=== PATIENT | male | born 2000 | race Caucasian/White ===

== ENCOUNTER 2021-05-24 11:26 | Emergency (ER) | payer SELFPAY ==
[2021-05-24 11:32] VITALS: BP 126/60; PULSE 69; RESP 16; TEMP 37.3; O2SAT 97
--- NOTE | 2021-05-24 11:38 | W.ED.GENAD ---
Discharge Plan Disposition Patient Disposition: HOME Condition: Improving Discharge Details Clinical Impression: Periorbital cellulitis of left eye ED Provider: Jason Gan Home Meds and New Rx's Prescriptions: New amoxicillin-pot clavulanate 875-125 mg tablet 1 tab PO BID 10 Days Qty: 20 RF: 0 Continued loratadine [Claritin] 10 mg Tablet 10 mg PO PRNRF: 0 Discharge Instructions Instructions: Cellulitis (ED) Additional Instructions: Apply warm compress to area 20 minutes at a time to speed healing. Take antibiotics as prescribed. Return to the ER for any acute concerns. Medical Decision Making 21-year-old male with left periorbital swelling, likely a developing cellulitis. No evidence of retrobulbar infection. Will treat with Augmentin. He is stable for discharge to home. HPI General Mode of arrival: ambulatory. Date/Time Provider Initiated Documentation: 05/24/21 11:28. Limitations to Documentation: no limitations. Information obtained by: patient. History of Present Illness 21 year old M presents to the emergency department with the chief complaint of L eye periorbital swelling, described as moderate, Quality is described as dull, and is localized to the eyes and left. Patient reports no radiation. Patient started experiencing this hour(s) and it has been constant. No relieving factors improve symptom(s), No exacerbating factors reported . Patient notes denies fever/chills, headaches and nausea/vomiting. Patient did receive the following treatments prior to arrival, none Related Data Home Medications Medication Instructions Recorded Confirmed amoxicillin-pot clavulanate 1 tab PO BID 10 Days #20 tab 05/24/21 loratadine [Claritin] 10 mg PO PRN 05/24/21 Previous Rx's Medication Instructions Recorded amoxicillin-pot clavulanate 1 tab PO BID 10 Days #20 tab 05/24/21 Allergies Allergy/AdvReac Type Severity Reaction Status Date / Time seasonal Allergy Uncoded 05/24/21 11:37 General Stated Complaint: EyeProblem HUBER: 4 Review of Systems Narrative: no other illness, no trauma [facility] Social History Smoking/Tobacco Use Status: Current every day Tobacco Type: cigarettes Smoking risk assessment performed?: Yes Alcohol Intake: current Alcohol Intake frequency: a few times a month Drug use: Daily Substance use type: marijuana Exam Narrative Exam Narrative: GEN: awake, alert, oriented 3. Pleasant, well groomed, interactive. HEAD: Normocephalic, atraumatic ENT: Mucous membranes moist, oropharynx unremarkable, External ear exam unremarkable EYES: PERRL, EOMI, no conjunctival injection or crusting of the lids. Left superior periorbital swelling with faint erythema Neuro: Grossly normal neurologic exam, conversant, interactive. Psych: Speech fluent, thoughts congruent, affect normal Course Vital Signs Vital signs: Vital Signs Temperature 37.3 C 05/24/21 11:32 Pulse 69 05/24/21 11:32 Respiratory Rate 16 05/24/21 11:32 Blood Pressure 126/60 05/24/21 11:32 Pulse Oximetry 97 05/24/21 11:32 Temperature 37.3 C 05/24/21 11:32 Temperature Source Skin 05/24/21 11:32 Pulse 69 05/24/21 11:32 Respiratory Rate 16 05/24/21 11:32 Respiratory Effort Non-Labored 05/24/21 11:32 Blood Pressure 126/60 05/24/21 11:32 Blood Pressure Position Sitting 05/24/21 11:32 Pulse Oximetry 97 05/24/21 11:32 Oxygen Delivery Method Room Air 05/24/21 11:32 Oxygen Flow Rate 0 05/24/21 11:32 Pain Level 5 05/24/21 11:32
[2021-05-24 12:00] VITALS: BP 126/60; PULSE 69; RESP 16; TEMP 37.3; O2SAT 97
--- OUTSIDE RECORDS SUMMARY | 2021-05-24 12:13 | XMS_ITS | Continuity of Care Document ---
:2000 Author Organization [facility] Address [address] [place] [address] Care Team Providers Name Role Phone Savanah Primary Care Physician Savanah Attending Physician Allergies, Adverse Reactions, Alerts Allergen Type Severity Reaction Last Updated Verified Status No Known Drug Allergies Allergy February 08, 2018 Y Active Medications Active Medications Medication Dose Units Route Sig Qty Start Date Status Loratadine 10 MG ORAL DAILY PRN For May 05 Ac tive allergies 2013 Mometasone Furoate 1 SPR NASAL DAILY PRN For er 9, Active [Nasonex] allergies 2013 Mupirocin 1 APPLIC TOPICALLY THREE TIMES A DAY February 08, 2 018 Active PRN For suspicious pimple formation Problem List Inactive/Resolved Problems Medical Problem Onset Date Status Suprapubic abscess Inactive Procedures Procedure Date Status MRSA Screen March 08, 2018 active Gram Stain February 08, 2018 completed Abscess Culture February 08, 2018 completed Group A Streptococcus Screen (EDA) April 15, 2017 compl eted Relevant Diagnostic Tests and/or Laboratory Data Microbiology Results Procedure Source Result Collection Result Date/Yash e Date/Time Group A Streptococcus Throat No results entered April 15 17 Screen (EDA) 12:17pm Abscess Culture Groin Staphylococcus February 08, 2018 February 11, 2018 Aureus-Mrsa 4:50pm 8:27am Gram Stain Groin No results entered February 08, 2018 4:50pm Advance Directives Advance Directive Response Recorded Date/Time Do we have a copy on file here at [facility]? No J 2017 4:32pm Does patient have an Advanced Directive? No February 08, 2011 5:25pm Pt has a Living Will? No February 08, 2011 5:25 pm Pt has a Power of Superintendent Stations? No February 08 5:25pm Chief Complaint and Reason for Visit Encounter Admit Date Chief Complaint Reason for Visit Departed Clinical March 08, 2018 12:19pm Lab Hospital Discharge Instructions No known hospital discharge instructions. Hospital Discharge Medications Medication Dose Units Route Sig Qty Days Order Date Status In structions Loratadine 10 MG ORAL DAILY PRN April Active For 2013 allergies Mometasone 1 SPR NASAL DAILY PRN April Active Furoate For 2013 allergies Mupirocin 1 APPLIC TOPICALLY THREE TIMES February 08 ve A DAY PRN 2017 For suspicious pimple formation Encounters Encounter Facility Location Admit/Visit Discharge/Departure Atte nding Date Date Provider Departed [facility] Laboratory March 08, 2018 March 08, 2018 12:20p m [facility] 12:19pm Richie hoover Departed [facility] Emergency February 08, 2018 February 08, 2018 5:45pm [facility] Department 3:52pm Departed [facility] 15, [facility] 3:06pm Heaven OneillMontebello Functional Status No known functional status. 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s No known immunizations. Payers Payer Name Policy Type Covered Republican Covered Relationship Subscriber Subscriber Republican Id Id MEDICAID OF Medicaid ERUM [id number] Self/Same as ERUM [id number] 20 [place] [employer] Patient FORTINMOODY SELF PAY Personal [place] MEDICAID Medicaid ERUM [id number] Self/Same as ERUM [id number] 20 (DO NOT FORTINMOODY Patient FORTINMOODY USE) Plan of Care No Known Plan of Care Information Social History Query Response Start Date Stop Date Smoking Status Never smoker Vital Signs Vital Reading Result Reference Range Collection Date/ Time Height n/a Weight 68.492 kg February 08, 2018 3: 54pm Temperature 98.8 F 97.6 F-99.6 F February 08, 2018 3: 54pm Pulse 61 BPM 56-106 February 08, 2018 3: 54pm Respiration 16 RPM 16-24 February 08, 2018 3: 54pm Pulse Oximetry 98 % 95-100 February 08, 2018 3: 54pm Blood Pressure Systolic 115 101-135 February 08, 2018 3:54pm Blood Pressure Diastolic 97 59-85 January 3:54pm Body Mass Index n/a
--- OUTSIDE RECORDS SUMMARY | 2021-05-24 12:13 | XMS_ITS | Continuity of Care Document ---
:2001 Author Organization [facility] Address [address] [place] [address] Care Team Providers Name Role Phone Savanah Primary Care Physician Humaira Attending Physician Allergies, Adverse Reactions, Alerts Allergen Type Severity Reaction Last Updated Verified Status No Known Drug Allergies Allergy none October 02, 2019 Y Active Medications No known medications. Problem List Inactive/Resolved Problems Medical Problem Onset Date Status Suprapubic abscess Inactive Acute tonsillitis April 17, 2017 Resolved Open wound of forearm with tendon involvement May 01 014 Resolved Bite of nonvenomous arthropod July 15, 2012 Resolved Acute pharyngitis April 15, 2017 Resolved Allergic rhinitis September 27, 2012 Resolved Allergic rhinitis September 27, 2012 Resolved Procedures Procedure Date Status Ribs 3 vw Min Bilat w/o PA CXR October 02, 2019 completed Relevant Diagnostic Tests and/or Laboratory Data No known relevant diagnostic tests, laboratory data, and/or discharge summary. Chief Complaint and Reason for Visit Encounter Admit Date Chief Complaint Reason for Visit Departed Clinical October 02, 2019 11:07am Xray Hospital Discharge Instructions No known hospital discharge instructions. Encounters Encounter Facility Location Admit/Visit Discharge/Departure Atte nding Date Date Provider Departed [facility] October 02October 02, 2019 Clay adams [facility] 2019 11:07am 11:08am [facility] Departed [facility] October 02October 02, 2019 Physician Haley[facility] 2019 9:56am 10:25am Jose angelo Office Visit Departed [facility] August 25August 25, 2019 Physician Humaira[facility] [place] 2018 11:35am 12:13pm Jose nagelo Office Visit Departed [facility] August 12August 12, 2019 Physician Humaira[facility] [place] 2018 1:59pm 2:52pm Jose angelo Office Visit Departed [facility] January 22, 2019 January 22, 2019 Feliciano kilpatrick, Physician[facility] 12:00am Tiffanie angelo Office Visit Functional Status No known functional status. 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s 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 Name Date Given Type DTP vaccine (H) 2001 Historical DTP vaccine (H) 2001 Historical DTP vaccine (H) 2001 Historical DTP vaccine (H) August 12, 2003 Historical DTP vaccine (H) May 04, 2006 Historical Hepatitis A Pediatric/Adolescent August 25, 2019 Adminis tered Hepatitis B UNSP (H) 2001 Historical Hepatitis B UNSP (H) June 27, 2002 Historical Hepatitis B UNSP (H) August 12, 2003 Historical HIB, Unspecified (H) 2001 Historical HIB, Unspecified (H) 2001 Historical HIB, Unspecified (H) 2001 Historical HIB, Unspecified (H) June 27, 2002 Historical HPV 9 (Gardasil) April 10, 2017 Historical HPV 9 (Gardasil) August 25, 2019 Administered Influenza IIV4 with Preservative July 14, 2016 Histori satish Meningococcal Conjugate MCV4 (Menactra) July 09, 2015 Historical Meningococcal Conjugate MCV4 (Menactra) August 25, 2019 Administered Measles,Mumps,Rubella Vaccine June 27, 2002 Historical Measles,Mumps,Rubella Vaccine May 04, 2006 Historical Pneumococcal Unspecified (H) 2001 Historical Pneumococcal Unspecified (H) 2001 Historical Pneumococcal Unspecified (H) 2001 Historical Polio unspecified (H) 2001 Historical Polio unspecified (H) 2001 Historical Polio unspecified (H) August 12, 2003 Historical Polio unspecified (H) May 04, 2006 Historical Tdap July 03, 2014 Historical Varicella Virus Vaccine (Varivax) July 03, 2014 Histor ical Varicella Virus Vaccine (Varivax) July 09, 2015 Histor ical Payers Payer Name Policy Type Covered Libertarian Covered Relationship Subscriber Subscriber Libertarian Id Id MEDICAID OF Medicaid Carlito [id number] Self/Same as Carlito [id number] 20 [place] Patient [place] SELF PAY Personal [place] MEDICA[place] Medicaid CARLITO [id number] Self/Same as CARLITO [id number] 20 (DO NOT FORTINMOODY Patient FORTINMOODY USE) Plan of Care No Known Plan of Care Information Social History Query Response Date Recorded Comment Alcohol Use No February 08, 2018 7:30pm Smoking Status Never smoker October 02, 2019 10:12am Substance/Street Drug Use No February 08, 2018 7:30pm Query Response Start Date Stop Date Smoking Status Never smoker Vital Signs Vital Reading Result Reference Range Collection Date/ Time Height 5 ft 7 in August 12 9 2:09pm Weight 73.482 kg October 02, 2019 10:10am Temperature 96.6 F 97.6 F-99.6 F October 02, 2019 10:10am Pulse 72 BPM 56-106 August 12 9 2:09pm Respiration 16 RPM 16-24 August 12 9 2:09pm Pulse Oximetry n/a Blood Pressure Systolic 106 101-135 August 12, 2019 2:09pm Blood Pressure Diastolic 72 59-85 [facility] 2018 2:09pm Body Mass Index 25.0 August 12 9 2:09pm
--- OUTSIDE RECORDS SUMMARY | 2021-05-24 12:13 | XMS_ITS | Continuity of Care Document ---
:[address] [facility] Address [address] [place] [address] Care Team Providers Name Role Phone Savanah Primary Care Physician Allergies, Adverse Reactions, Alerts Allergen Type Severity Reaction Last Updated Verified Status No Known Drug Allergies Allergy none October 02, 2019 Y Active Medications Active Medications Medication Dose Units Route Sig Qty Days Start Date St [facility] Omeprazole 20 MG ORAL DAILY 14 14 March 13, 2020 Active Discontinued Medications Medication Dose Units Route Sig Qty Days Start Discontinued Status Date Date 0.5 ML INTRAMUSCU ONCE 0.5 JulyAugust 25 , Discontinu LAR 2018 ed 0.5 ML INTRAMUSCU ONCE 0.5 JulyAugust 25 , Discontinu LAR 2018 ed human papillomav vac,9-james(PF) 0.5 mL intramuscular syringe 0.5 ML INTRAMUSCU ONCE 0.5 JulyAugust 25, Discontinu LAR 2018 ed Mupirocin 1 APPLIC TOPICALLY THREE February 08, August 11, Discontinu TIMES A 2017 2018 ed DAY PRN For suspicio us pimple formatio n Problem List Active Problems Medical Problem Onset Date Status Dyspepsia Active Inactive/Resolved Problems Medical Problem Onset Date Status [...] diagnostic tests, laboratory data, and/or discharge summary. Hospital Discharge Instructions Additional Discharge Instructions As discussed symptom s are consistent with peptic ulcer disease, although right upper abdominal pain can also be due to issues with the gallbladder or liver, such as gallstones, pancreatitis, or hepatiti s, so we will draw labs toda y to check for evidence of these and call with results this afternoon. Take the omeprazole 20mg zaida ly for 2-4 weeks. You can also take OTC maalox between meals and before bed if needed for immediate relief. Avoid spicy, acidic, fatty a nd greasy foods. Stick to a bland diet for the next couple of weeks. Lots of fresh fruits and veggies, lean meats, etc. Avoid laying down for about 3 hours after eating. You may want to elevate the head of your bed slightly so you are not laying flat at night. Increase fluids and high fib er foods to help with constipation. You can also consider taking miralax to help with constipation - you can take this daily until stools are regular and soft, and then decrease use if stools become too loose or frequent. Follow up with your PCP in 2 weeks for re-evaluation, or sooner if there is any acute worsening. Instruction/Education Provided COVID 19 General Instru ctions- decrease the spread of coronavirus ([facility]) Hospital Discharge Medications Medication Dose Units Route Sig Qty Days Order Status Instru ctions Date 0.5 ML INTRAMUSCU ONCE 0.5 July Discontinu LAR 2018 ed 0.5 ML INTRAMUSCU ONCE 0.5 Juan Discontinu LAR 2018 ed human 0.5 ML INTRAMUSCU ONCE 0.5 July Discontinu papillomav LAR 2018 ed vac,9-james(PF) 0.5 mL intramuscular syringe Mupirocin 1 APPLIC TOPICALLY THREE February 08, Discontin u TIMES A 2017 ed DAY PRN For suspicio us pimple formatio n Omeprazole 20 MG ORAL DAILY 14 March [id number] Encounters Encounter Facility Location Admit/Visit Discharge/Departure Atte nding Date Date Provider Departed [facility] March 13, 2020 March 13, 2020 1:44 pm [facility] 10:59am Chantel Departed [facility] October 02October 02, 2019 Clay adams [facility] 2019 11:07am 11:08am [facility] Departed [facility] October 02October 02, 2019 Bre leblanc Physician[facility] 2019 9:56am 10:25am Jose ovidsravani Office Visit Departed [facility] August 25August 25, 2019 Physician Humaira[facility] 2018 11:35am 12:13pm Jose aranda Office Visit Departed [facility] August 12August 12, 2019 Physician Hum[facility] 2018 1:59pm 2:52pm Jose ovidsravani Office Visit Functional Status Query Response Date Recorded Comment Living Situation With Family March 13, 2020 1:07pm 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s 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 Name Date Given Type DTP [...] Libertarian Id Id MEDICAID OF Medicaid Carlito [id number] Self/Same as Carlito [id number] 20 [place] Patient [employer] SELF PAY Personal [place] MEDICAID Medicaid CARLITO [id number] Self/Same as CARLITO [id number] 20 (DO NOT FORTINMOODY Patient FORTINMOODY USE) Plan of Care Instructions COVID 19 General Instructions- decrease the spread of coronavirus ([facility]) Social History Query Response Date Recorded Comment Alcohol Use Yes March 13, 2020 1:07pm Alcohol type beer March 13, 2020 1:07pm wine Smoking Status Current every day smoker March 13, 2020 1:07pm Substance/Street Drug Use No March 13, 2020 1:07pm alcohol intake frequency a few times a week March 13, 2020 1:07pm substance use type does not use March 13, 2020 1:07pm Query Response Start Date Stop Date Smoking Status Current every day smoker Vital Signs Vital Reading Result Reference Range Collection Date/ Time Height 5 ft 7 in August 12 9 2:09pm Weight 69.4 kg March 13, 2020 12 :13pm Temperature 98.3 F 97.6 F-99.6 F March 13, 2020 1: 44pm Pulse 72 BPM 56-106 March 13, 2020 1: 44pm Respiration 16 RPM 16-24 August 12 9 2:09pm Pulse Oximetry 99 % 95-100 March 13, 2020 1: 44pm Blood Pressure Systolic 118 101-135 March 13, 2020 1:44pm Blood Pressure Diastolic 78 59-85 February 1:44pm Body Mass Index 25.0 August 12 9 2:09pm
--- OUTSIDE RECORDS SUMMARY | 2021-05-24 12:14 | XMS_ITS | Continuity of Care Document ---
:2001 Author Organization [facility] Address [address] [place] [address] Care Team Providers Name Role Phone Savanah Primary Care Physician Allergies, Adverse Reactions, Alerts Allergen Type Severity Reaction Last Updated Verified Status No Known Drug Allergies Allergy February 08, 2018 Y Active Medications Active Medications Medication Dose Units Route Sig Qty Start Date Status Loratadine 10 MG ORAL DAILY PRN For May 05, Ac tive allergies 2013 Mometasone Furoate 1 SPR NASAL DAILY PRN For er 9, Active [Nasonex] allergies 2013 Mupirocin 1 APPLIC TOPICALLY THREE TIMES A DAY February 08, 018 Active PRN For suspicious pimple formation Problem List Active Problems Medical Problem Onset Date Status Suprapubic abscess Active Procedures Procedure Date Status Gram Stain February 08, 2018 active Abscess Culture February 08, 2018 active Group A Streptococcus Screen (EDA) April 15, 2017 compl eted Relevant Diagnostic Tests and/or Laboratory Data Microbiology Results Procedure Source Result Collection Date/Time Result Date/Time Group A Streptococcus Throat No results April 15, 2017 Screen (EDA) entered 12:17pm Advance Directives Advance Directive Response Recorded Date/Time Do we have a copy on file here at [facility]? No J 2017 4:32pm Does patient have an Advanced Directive? No February 08, 2011 5:25pm Pt has a Living Will? No February 08, 2011 5:25 pm Pt has a Power of Rn Intern? No February 08 5:25pm Chief Complaint and Reason for Visit Encounter Admit Date Chief Complaint Reason for Visit Departed Emergency February 08, 2018 3:52pm [facility]- [facility] Hospital Discharge Instructions Additional Discharge Instructions Keep the wound dry f or 24 hours, then you remove the small strip packing and start to engage in warm soapy sitz bath with or without Epsom salts 20 minutes 3-4 times per day for several days. You shoul d note that the wound will f eel less bad incrementally each day. If you fail to note any signs of improvement in 2 days or if your symptoms are worsening, you should return to the emergency department. You can use any over-the-c ounter antibiotic ointment when reapplying dressings over the next several days as the wound gradually expresses less drainage. Laog-zig-geylmwy medications like ibuprofen t ypically taking 400-600 mg u p to every 8 hours only as needed, and for acute worsening pain can go as high as 800 mg with food. For breakthrough pain can also add Tylenol 650-975mg every 6-8 hours as well in alternating dosing. If you note future pimple fo rmation in unusual areas, consider applying the mupirocin ointment to the affected area 3 times a day to try to prevent future abscess formation. Instruction/Education Provided Abscess Incision and Dr hernadez MRSA ([place]) Hospital Discharge Medications Medication Dose Units Route Sig Qty Days Order Date Status In structions Loratadine 10 MG ORAL DAILY PRN April Active For 2013 allergies Mometasone 1 SPR NASAL DAILY PRN April Active Furoate For 2013 allergies Mupirocin 1 APPLIC TOPICALLY THREE TIMES February 08, i ve A DAY PRN 2017 For suspicious pimple formation Encounters Encounter Facility Location Admit/Visit Discharge/Departure Atte nding Date Date Provider Departed [facility] Emergency February 08, 2018 February 08, 2018 5:45pm [facility] Department 3:52pm Departed [facility] April 15, April 15, [facility] 3:05[facility] 3:06pm Heaven Lynbrook Functional Status No known functional status. 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s No known immunizations. Payers Payer Name Policy Type Covered Republican Covered Relationship Subscriber Subscriber Republican Id Id MEDICAID OF Medicaid ERUM [id number] Self/Same as ERUM [id number] 20 [place] FORTIN[place] Patient FORTINMOODY SELF PAY Personal [place] MEDICAID Medicaid ERUM [id number] Self/Same as ERUM [id number] 20 (DO NOT FORTINMOODY Patient FORTINMOODY USE) Plan of Care Instructions Abscess Incision and Drainage MRSA ([place]) Social History Query Response Start Date Stop [...]
--- OUTSIDE RECORDS SUMMARY | 2021-05-24 12:14 | XMS_ITS | Continuity of Care Document ---
:2001 Author Organization [facility] Address [address] [place] [address] Care Team Providers Name Role Phone Heaven Franklin Primary Care Physician Heaven Franklin Attending Physician Allergies, Adverse Reactions, Alerts Allergen Type Severity Reaction Last Updated Verified Status NO KNOWN DRUG ALLERGIES Allergy May 05 4 N Active Medications Active Medications Medication Dose Units Route Sig Start Date Status Loratadine 10 mg ORAL DAILY PRN For May 05 14 Active allergies Mometasone Furoate 1 spray Intranasal DAILY PRN For 2013 Active [Nasonex] allergies Problem List No problem information available. Procedures Procedure Date Status Group A Streptococcus Screen (EDA) April 15, 2017 activ e Relevant Diagnostic Tests and/or Laboratory Data No known relevant diagnostic tests, laboratory data, and/or discharge summary. Advance Directives Advance Directive Response Recorded Date/Time Does patient have an Advanced Directive? No February 08, 2011 5:25pm Pt has a Living Will? No February 08, 2011 5:25 pm Pt has a Power of Architecture Technician? No February 08 1 5:25pm Hospital Discharge Instructions No known hospital discharge instructions. Hospital Discharge Medications Medication Dose Units Route Sig Qty Days Order Date Status In structions Loratadine 10 mg ORAL DAILY PRN April Active For 2013 allergies Mometasone 1 spray Intranasal DAILY PRN April Act july Furoate For 2013 allergies Encounters Encounter Facility Location Admit/Visit Discharge/Departure Atte nding Date Date Provider Departed [facility] April 15, April 15, 2017 Ebenezer naik [facility] 2016 3:05pm 3:06pm [facility] Functional Status No known functional status. 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s No known immunizations. Payers Payer Name Policy Type Covered Alliance Party Covered Relationship Subscriber Subscriber Alliance Party Id Id SELF PAY Personal [place] MED[place] Medicaid ERUM [id number] Self/Same as ERUM [id number] 20 (DO NOT FORTINMOODY Patient FORTINMOODY USE) Plan of Care No Known Plan of Care Information Social History No known social history. Vital Signs No known vital signs results.
--- OUTSIDE RECORDS SUMMARY | 2021-05-24 12:14 | XMS_ITS | Continuity of Care Document ---
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 No February 08 1 5:25pm Hospital Discharge [...] Atte nding Date Date Provider Departed [facility] April 15April 15, 2017 Ebenezer naik [facility] 2016 3:05pm 3:06pm [facility] Functional Status No known functional status. 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s No known immunizations. Payers Payer Name Policy Type Covered Alliance Party Covered Relationship Subscriber Subscriber Alliance Party Id Id MEDICAID OF Medicaid ERUM [id number] Self/Same as ERUM [id number] [place] Patient FORTINMOODY SELF PAY Personal [place]ICA[place] Medicaid ERUM [id number] Self/Same as ERUM [id number] (DO NOT FORTINMOODY Patient FORTINMOODY USE) Plan of Care No Known Plan of Care Information Social History No known social history. Vital Signs No known vital signs results.
--- OUTSIDE RECORDS SUMMARY | 2021-05-24 12:15 | XMS_ITS | Continuity of Care Document ---
:2000 Author Organization [facility] Address [address] [place] [address] Phone Care Team Providers Name Role Phone Chiappinelli Primary Care Provider [place] Attending Provider Allergies, Adverse Reactions, Alerts Allergen Type Severity Reaction Last Updated Verified Status No Known Drug Allergy none September Yes Active Allergies 2019 10:09am Medications Medication Status Dose Units Route Sig Qty Days Start End Instruct ions Date Date Discontinu 0.5 ML IM ONCE 0.[address] [facility] ed , r 2018 11:35am 1:55pm Discontinu 0.5 ML [facility] 11:35am 1:55pm human Discontinu 0.5 ML [facility] , vac,9-james(PF) 2018 2018 0.5 mL 11:35am 1:55pm intramuscular syringe Mupirocin Discontinu 1 APPLIC TOP THREE [address] [facility] ed TIMES 15, r 16, A DAY 2017 2018 5:38pm 4:06pm Omeprazole Active 20 MG PO DAILY 14 14 March 13, 2020 1:39pm Problems Active Problems Medical Problem Onset Date Status Dyspepsia Active Inactive/Resolved Problems Medical Problem Onset Date Status Suprapubic abscess Resolved Acute tonsillitis April 17, 2017 Resolved Open wound of forearm with May 01, 2014 Resolved tendon involvement Bite of nonvenomous arthropod July 15, 2012 Resolved Acute pharyngitis April 15, 2017 Resolved Allergic rhinitis September 27, 2012 Resolved Allergic rhinitis September 27, 2012 Resolved Procedures Procedure Date Performed Status Ribs 3 vw Min Bilat w/o PA CXR October 02, 2019 11:11am co mpleted Relevant Diagnostic Tests and/or Laboratory Data Diagnostic Imaging Reports Report Dictated Date/Time Dictated By Status Radiology Report October 02, 2019 Barb Bond , complete d 11:46am [facility] RADIOLOG [facility] REPORT PATIENT NAME: Carlito Curran MRN: [id number] DATE OF : 2000 311 ATTENDING/ER PHYSICIAN: Bre Gerardo MD ER/ATTENDING PHYSICIAN: PRIMARY CARE PHYS: Ana Howe MD ADMITTING PHYSICIAN: CONSULTING PHYSICIAN: PROCEDURE DATE: 10/02/19 REPORT STATUS: Signed DICTATING PHYSICIAN: Michelle Bond MD REASON FOR EXAM: fall onto right side, now with left lowe r rib pain STUDY: Ribs 3 vw Min Bilat w/o PA CXR CLINICAL HISTORY: Fall onto right side, now with lower rib pain. COMPARISON: None. FINDINGS/IMPRESSION: The cardiomediastinal silhouette is wit hin normal limits. There is no focal consolidation, pleura l effusion, pulmonary edema or pneumothorax. There are no rib fractures. dd: 10/02/19 1146 <Electronically signed by Barb patel MD in OV> 10/02/19 1148 Advance Directives Advance Directive Response Recorded Date/Time Does patient have an Advanced No February 08, 2011 5:25pm Directive? Do we have a copy on file No February 08 8 4:32pm [place] [facility] [place] Pt has a Living Will? No February 08, 2011 5: 25pm Do we have a copy on file No February 08 8 4:32pm [place] [facility] [place] Pt has a Power of Digital X Ray Service Engineer? No Lana 15th, 2 011 5:25pm Do we have a copy on file No February 08 8 4:32pm [place] [facility] [place] Chief Complaint and Reason for Visit Chief Complaint Well child (adolescent) 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s rib pain Xray Encounters Encounter Location(s) Arrival/Admit Date Discharge/Depart Date Provider(s) Departed [facility] August 12, August 12, 2019 Jose Gerardo Physician/[facility] 2018 1:59pm 2:52pm [facility] [place] [facility] Departed [facility] August 25, August 25, 2019 Jose Gerardo Physician/[facility] 2018 11:35am 12:13pm [facility] [place] [facility], [facility] October 02, 2019 [facility] reinier Gerardo [facility] 9:[facility] [place] [facility], 2019 October 02, 2019 Njmaria c Gerardo [facility]- 11:07am 11:08am [facility] Departed [facility] March 13, 2020 March 13, 2020 [facility] 10:59am 1:44pm [facility] Assessments No Assessments Information Available Family History Relationship Condition Age at Onset Recorded Date/Ti me Not Specified No current problems or Unknown disability Not Specified Type 2 diabetes mellitus Unknown Bipolar affective Unknown disorder Diverticulitis Unknown Parent No current problems or Unknown disability Not Specified No current problems or Unknown disability Not Specified Lupus Unknown Not Specified Family history Unknown non-contributory Functional Status Observation Response Date Recorded Living Situation With Family March 13, 2020 1:07 pm Goals Goals may be documented in an alternate section. 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s 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 Event Date Not Given Dose Operations Research Engineer Lot Number Va ccine Reason Number Informatio n Statement (VIS) Deta il DTP vaccine (H) 2001 DTP vaccine (H) 2001 DTP vaccine (H) 2001 DTP vaccine (H) August 12, 2003 DTP vaccine (H) May 04, 2006 Hepatitis A July [id number] Pediatric/Adoles 2018 cent Hepatitis B UNSP November 11 (H) 2001 Hepatitis B UNSP June (H) 2001 Hepatitis B UNSP July (H) 2002 HIB, Unspecified May (H) 2000 HIB, Unspecified July (H) 2000 HIB, Unspecified November 11, (H) 2001 HIB, Unspecified June (H) 2001 HPV 9 (Gardasil) April 10, 2017 HPV 9 (Gardasil) July [id number] Influenza IIV4 June with 2015 Preservative Meningococcal November Conjugate MCV4 2014 (Menactra) Meningococcal Juan [id number] Conjugate MCV4 2018 (Menactra) Measles,Mumps,Ru November aleksandra Vaccine 2001 Measles,Mumps,Ru Anabela aleksandra Vaccine 2005 Pneumococcal October Unspecified (H) 2000 Pneumococcal Juan Unspecified (H) 2000 Pneumococcal November 11ified (H) 2001 Polio October unspecified (H) 2000 Polio Juan unspecified (H) 2000 Polio Juan unspecified (H) 2002 Polio Anabela unspecified (H) 2005 Tdap July 03, 2014 Varicella Virus November Vaccine 2013 (Varivax) Varicella Virus November Vaccine 2014 (Varivax) Mental Status No Mental Status Information Available Medical Equipment No Medical Equipment Information available Insurance Providers Guarantor CARLITO Zeke GLORIA Address [address] [facility] [address] Contact Info. Home Phone: Payer Policy Id Coverage Id Subscriber's Subscriber Id Effective E xpiration Name Date Date MEDICAID OF [id number] Carlito Alanis [id number] [place] SELF PAY Self N/A [place] MEDICA[place] [id number] CARLITO [id number] (DO NOT FORTINMOODY USE) Plan of Treatment rib pain after fall --> check x-ray--> negative discussed diet/nutrition, safety and well-being, discipline, prevention and healthy lifestyles appropriate for age patient needs HPV booster, but wants to get this at another time Future Tests Future scheduled test information is unavailable Pending Tests Pending diagnostic test information is unavailable Future Visits Future appointment information is unavailable Referrals to Other Providers Reason for Referral Start Provider Provider Contact Provider Address Referral Date Information Monty Work Phone: [facility] [place] [facility] Enrico Pavon MD [address] [facility] [phone] Future Procedures Future procedure information is unavailable Future Medications Future medication information is unavailable Patient Instructions COVID 19 General Instructions- decrease the spread of coronavirus ([facility]) Social History Smoking Status Status Date of Observation Smokes tobacco daily (finding) March 13, 2020 1:07pm Observation Status Observation Response Date of Response Alcohol Use Yes March 13, 2020 1:07 pm alcohol intake frequency a few times a week March 13, 2020 1:07pm Alcohol type beer March 13, 2020 1:07 pm wine March 13, 2020 1:07 pm Substance/Street Drug Use No March 13 0 1:07pm substance use type does not use March 13, 2020 1:07 pm Smoking Status Current every day smoker March 13, 2020 1:07pm Assigned Sex Male Vital Signs Vital Reading Result Reference Range Collection Date/ Time Height 67 [in_i] August 12, 2 019 2:09pm Weight 72.29 kg August 12, 2 019 2:09pm Heart Rate 72 /min 56-106 August 12, 2 019 2:09pm Respiratory rate 16 /min 16-24 August 12, 2019 2:09pm BP Systolic 106 mm[Hg] 101-135 August 12, 2 019 2:09pm BP Diastolic 72 mm[Hg] 59-85 August 12, 2 019 2:09pm BMI (Body Mass Index) 25.0 kg/m2 July 272018 2:09pm Weight 73.48 kg October 02 10:10am Body Temperature 96.6 [degF] 97.6-99.6 October 02, 2 020 10:10am Weight 69.39 kg March 13, 2020 12:13pm Body Temperature 98.3 [degF] 97.6-99.6 March 13, 2020 1:44pm Heart Rate 72 /min 56-106 March 13, 2020 1:44pm Oxygen saturation by 99 % 95-100 March 13, 2020 1:44pm Pulse oximetry BP Systolic 118 mm[Hg] 101-135 March 13, 2020 1:44pm BP Diastolic 78 mm[Hg] 59-85 March 13, 2020 1:44pm
--- OUTSIDE RECORDS SUMMARY | 2021-05-24 12:15 | XMS_ITS | Continuity of Care Document ---
:2000 Author Organization [facility] Address [address] [place] [address] Phone Care Team Providers Name Role Phone Chiappinelli Primary Care Provider Alexandria Attending Provider Allergies, Adverse Reactions, Alerts Allergen Type Severity Reaction Last Verified Status Updated No Known Drug Allergy none March Yes Active Allergies 2019 2:10pm Medications No known medications. Problems Inactive/Resolved Problems Medical Problem Onset Date Status Suprapubic abscess Resolved Acute tonsillitis April 17, 2017 Resolved Open wound of forearm with May 01, 2014 Resolved tendon involvement Bite of nonvenomous arthropod July 15, 2012 Resolved Dyspepsia Resolved Acute pharyngitis April 15, 2017 Resolved Allergic rhinitis September 27, 2012 Resolved Allergic rhinitis September 27, 2012 Resolved Procedures Procedure Date Performed Status Ribs 3 vw Min Bilat w/o PA CXR October 02, 2019 11:11am co mpleted Relevant Diagnostic Tests and/or Laboratory Data Laboratory Results Test Date/Time Result Interpretation Reference Result Comment Performing Range Site White Blood March 13, 7.12 4.8-10.8 MAIN [place] B, [address] [facility] Count 2019 1000/mm3 [place] [address] 1:37pm Red Blood March 13, 5.38 M/mm3 4.70-6.00 MAIN LAB , [address] [place] [address] Count 2019 [place] [address] 1:37pm Hemoglobin March 13, 16.9 g/dL 14.0-18.0 MAIN LAB , [address] [place] [address] [place] [address] 1:37pm Hematocrit March 13, 49.9 % 42-52 MAIN LAB , [address] [place] [address] [place] [address] 1:37pm Mean March 13, 92.8 fL 80.0-94.0 MAIN LAB, [address] [place] [address] Corpuscular 2020 [place] [address] Volume 1:37pm Mean March 13, 31.4 pg 27-31 MAIN LAB, [address] [place] [address] [place] [address] Hemoglobin 1:37pm Mean March 13, 33.9 g/dL 33-37 MAIN LAB, [address] [place] [address] Corpuscular 2020 [place] [address] Hemoglobin 1:37pm Concent Red Cell March 13, 12.5 % 11.5-14.5 MAIN LAB, [address] [place] [address] [place] [address] Width 1:37pm Platelet March 13, 216 140-440 MAIN LAB, [address] [place] [address] 2019 1000/mm3 [place] [address] 1:37pm Mean March 13, 9.7 fL 7.4-10.4 MAIN LAB, [address] [place] [address] Platelet 2019 [place] [address] Volume 1:37pm Neutrophils March 13, 64.3 % 40.0-72.0 MAIN [place] B, [address] [place] [address] (%) (Auto) 2020 [place] [address] 1:37pm Lymphocytes March 13, 26.4 % 17-45 MAIN [facility] B, [address] [place] [address] (%) (Auto) [address] [place] [address] 1:37pm Monocytes March 13, 7.0 % 3-11 MAIN LAB, [address] [place] [address] (%) (Auto) [address] [place] [address] 1:37pm Eosinophils March 13, 1.0 % 0-3 MAIN [facility] B, [address] [place] [address] (%) (Auto) [address] [place] [address] 1:37pm Basophils March 13, 1.0 % 0-1 MAIN LAB, [address] [place] [address] (%) (Auto) 2020 [place] [address] 1:37pm Immature March 13, 0.3 % 0-1 MAIN LAB, [address] [place] [address] [place] [address] % (Auto) 1:37pm Neutrophils March 13, 4.58 1.4-6.5 MAIN LA B, [address] [place] [address] # (Auto) 2020 1000/mm3 [place] [address] 1:37pm Lymphocytes March 13, 1.88 1.2-3.4 MAIN [facility] B, [address] [place] [address] # (Auto) 2020 1000/mm3 [place] [address] 1:37pm Monocytes # March 13, 0.50 0.0-0.8 MAIN LA B, [address] [place] [address] (Auto) 2020 1000/mm3 [place] [address] 1:37pm Eosinophils March 13, 0.07 0.0-0.7 MAIN LA B, [address] [place] [address] # (Auto) 2020 1000/mm3 [place] [address] 1:37pm Basophils # March 13, 0.07 0.0-0.1 MAIN LA B, [address] [place] [address] (Auto) 2020 1000/mm3 [place] [address] 1:37pm Absolute March 13, 0.0 0-1 MAIN LAB, [address] [place] [address] Immature 2020 [place] [address] Granulocyte 1:37pm (auto Differential March 13, Automated MAIN L AB, [address] [place] [address] Method 2019 [place] [address] 1:37pm Sodium Level March 13, 141 mmol/L 137-145 MAIN LAB, [address] [place] [address] 2020 [place] [address] 1:37pm Potassium March 13, 4.4 mmol/L 3.6-5.0 MAIN LAB , [address] [place] [address] 2020 [place] [address] 1:37pm Chloride March 13, 103 mmol/L 98-107 MAIN LAB , [address] [place] [address] Level 2020 [place] [address] 1:37pm Carbon March 13, 29 mmol/L 22-30 MAIN LAB, [address] [place] [address] Dioxide 2020 [place] [address] Level 1:37pm Anion Gap March 13, 9 7-16 MAIN LAB, [address] [place] [address] 2020 [facility] [address] 1:37pm Blood Urea March 13, 15 mg/dL 8-26 MAIN LAB , [address] [place] [address] Nitrogen 2019 [place] [address] 1:37pm Creatinine March 13, 0.88 mg/dL 0.66-1.25 MAIN [facility] B, [address] [place] [address] 2020 [place] [address] 1:37pm Glomerular March 13, > 60 >60.0 MAIN LAB , [address] [place] [address] Filtration 2019 mL/[place] [address] Rate Calc 1:37pm Glucose March 13, 103 mg/dL 70-100 MAIN LAB, [address] [place] [address] 2019 [facility] [address] 1:37pm Calcium March 13, 9.8 mg/dL 8.4-10.2 MAIN LAB, [address] [place] [address] 2019 [facility] [address] 1:37pm Calcium March 13, 8.9 mg/dL 8.4-10.2 MAIN LAB, [address] [place] [address] Adjusted for 2019 [facility] [address] Albumin 1:37pm Total March 13, 0.9 mg/dL 0.2-1.3 MAIN LAB, [address] [place] [address] Bilirubin 2019 [facility] [address] 1:37pm Aspartate March 13, 25 U/L 17-59 MAIN LAB, [address] [place] [address] Amino Transf 2019 [facility] [address] (AST/SGOT) 1:37pm Alanine March 13, 13 U/L <50 As of 12/26/19, MAIN LAB, [address] [place] [address] Aminotransfe 2019 the Reference [facility] [address] rase 1:37pm Range for (ALT/SGPT) ALT/SGPT for adult patients has been updated. The Reference Range for ALT/SGPT has not been established for patients <18 years of age. Total March 13, 8.3 g/dL 6.3-8.2 MAIN LAB, [address] [place] [address] Protein 2019 [place] [address] 1:37pm Albumin March 13, 5.4 g/dL 3.5-5.0 MAIN LAB, [address] [place] [address] 2020 [place] [address] 1:37pm Alkaline March 13, 66 U/L 38-126 MAIN LAB, [address] [facility] Phosphatase 2020 . [place] [address] 1:37pm Lipase March 13, 60 U/L 23-300 MAIN LAB, [address] 2020 [place] [address] 1:37pm Hepatitis A March 13, Negative Negative The results of [facility] IgM Antibody 2019 this assay can [facility] 1:37pm be falsely lowered due to theconsumption of Biotin.Test performed or referred by[address] [address] Hepatitis B March 13, Negative Negative Test performed [facility] Surface 2019 or referred LABOR[facility]O LINDA Antigen 1:37pm by[address] [address] Hepatitis B March 13, Negative Negative Test performed [facility] Core Total 2019 or referred LAB[facility] ORIES Antibody 1:37pm by[address] [address] Hepatitis C March 13, Negative NEGATIVE MAIN [facility] B, [address] [facility] IgG Antibody 2020 [place] [address] 1:37pm Hepatitis C March 13, See Anti-HCV IgG MAIN LAB, [address] [facility] Antibody 2020 comment [place]. [place] [address] Comment 1:37pm Patient is presumed not to be infected with HCV. Diagnostic Imaging Reports Report Dictated Date/Time Dictated By Status Radiology Report October 02, 2019 Barb Bond , complete d 11:46am [facility] RADIOLOG Y REPORT PATIENT NAME: Carlito Curran MRN: [id number] DATE OF : 2000 311 ATTENDING/ER PHYSICIAN: [...] a copy on file No February 08 4:32pm here at [facility]? Pt has a Living Will? No February 08, 2011 5: 25pm Do we have a copy on file No February 08 8 4:32pm here at [facility]? Pt has a Power of University Archivist? No February 08 5:25pm Do we have a copy on file No February 08 4:32pm here at [facility]? Chief Complaint and Reason for Visit Chief Complaint Well child (adolescent) 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s rib pain Xray Well child Encounters Encounter Location(s) Arrival/Admit Date Discharge/Depart Date Provider(s) Departed [facility] August 12, August 12, 2019 Jose [facility] 1:59[facility] 2:52pm MD kumar Office Pediatrics Visit [facility] Departed [facility] August 25, August 25, 2019 Jose Gerardo Physician[facility] 11:35am 12:13pm MD kumar Office Pediatric[facility], 2019 October 02, 2019 Odilia Gerardo Physician[facility] 9:56am 10:25am MD kumar Office Pediatric[facility] October 02, 2019 October 02, 2019 Odilia Gerardo Clinical Medical Group- 11:07am 11:08am [facility] Departed [facility] March 13, 2020 March 13, 2020 [facility] 10:59am 1:44pm [facility] Departed [facility] April 12, 2020 April 12, 2020 Joel Coto [facility] 1:55pm 2:49pm , MD boydr Office Pediatrics Visit [facility] Assessments No Assessments Information Available Family History [...] 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s 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 Event Date Not Given Dose Activity Coordinator Lot Number Va ccine Reason Number Informatio n Statement (VIS) Deta il DTP vaccine (H) 2001 DTP vaccine (H) 2001 DTP vaccine (H) 2001 DTP vaccine (H) August 12, 2003 DTP vaccine (H) May 04, 2006 Hepatitis A July [id number] Pediatric/Adoles 2018 cent Hepatitis B UNSP November 11, (H) 2001 Hepatitis B UNSP June (H) 2001 Hepatitis B UNSP July (H) 2002 HIB, Unspecified May (H) 2000 HIB, Unspecified July (H) 2000 HIB, Unspecified November 11, (H) 2001 HIB, Unspecified June (H) 2001 HPV 9 (Gardasil) April 10, 2017 HPV 9 (Gardasil) July [id number] Influenza IIV4 June with 2015 Preservative Meningococcal November Conjugate MCV4 2014 (Menactra) Meningococcal Juan [id number] Conjugate MCV4 2018 (Menactra) Measles,Mumps,Ru November aleksandra Vaccine 2001 Measles,Mumps,Ru Anabela aleksandra Vaccine 2005 Pneumococcal October Unspecified (H) 2000 Pneumococcal Juan Unspecified (H) 2000 Pneumococcal November 11, Unspecified (H) 2001 Polio October unspecified (H) 2000 Polio Juan unspecified (H) 2000 Polio Juan unspecified (H) 2002 Polio Anabela unspecified (H) 2005 Tdap July 03, 2014 Varicella Virus November Vaccine 2013 (Varivax) Varicella Virus November Vaccine 2014 (Varivax) Mental Status No Mental Status Information Available Medical Equipment No Medical Equipment Information available Insurance Providers Guarantor CARLITO CURRAN Address [address] [place] [address] Contact Info. Home Phone: Payer Policy Id Coverage Id Subscriber's Subscriber Id Effective E xpiration Name Date Date MEDICAID OF [id number] CARLITO Alanis [id number] [place] S[place] Self N/A [place] [id number] CARLITO [id number] (DO NOT FORTINMOODY USE) Plan of Treatment [...] Address Referral Date Information Monty Work Phone: [facility] Pediatric[facility] [place] Pavon MD [address] [facility] [place] [address] Future Procedures Future procedure information is unavailable Future Medications Future medication information is unavailable Patient Instructions COVID 19 General Instructions- decrease the spread of coronavirus ([facility]) Social History Smoking Status Status Date of Observation Smokes tobacco daily (finding) April 12, 2020 2:16p m Observation Status Observation Response Date of Response Alcohol Use Yes March 13, 2020 1:07 pm alcohol intake frequency a few times a week April 12 2:12pm Alcohol type beer April 12, 2020 2: 12pm wine April 12, 2020 2: 12pm Substance/Street Drug Use No March 13 0 1:07pm substance use type does not use April 12, 2020 2: 12pm Smoking Status Current every day smoker April 12 2:16pm Assigned Sex Male Vital Signs Vital Reading Result Reference Range Collection Date/ Time Height 67 [in_i] August 12, 019 2:09pm Weight 72.29 kg August 12, 019 2:09pm Heart Rate 72 /min 56-106 August 12 019 2:09pm Respiratory rate 16 /min 16-24 August 12, 2019 2:09pm BP Systolic 106 mm[Hg] 101-135 August 12 2 019 2:09pm BP Diastolic 72 mm[Hg] 59-85 August 12 019 2:09pm BMI (Body Mass Index) 25.0 kg/m2 July 272018 2:09pm Weight 73.48 kg October 02 10:10am Body Temperature 96.6 [degF] 97.6-99.6 October 02 020 10:10am Weight 69.39 kg March 13, 2020 12:13pm Body Temperature 98.3 [degF] 97.6-99.6 March 13, 2020 1:44pm Heart Rate 72 /min 56-106 March 13, 2020 1:44pm Oxygen saturation by 99 % 95-100 March 13, 2020 1:44pm Pulse oximetry BP Systolic 118 mm[Hg] 101-135 March 13, 2020 1:44pm BP Diastolic 78 mm[Hg] 59-85 March 13, 2020 1:44pm Height 68 [in_i] April 12 0 2:08pm Weight 69.45 kg April 12 0 2:08pm Heart Rate 84 /min 56-106 April 12 0 2:08pm BP Systolic 122 mm[Hg] 101-135 April 12 0 2:08pm BP Diastolic 76 mm[Hg] 59-85 April 12 0 2:08pm BMI (Body Mass Index) 23.3 kg/m2 March 2:08pm
--- OUTSIDE RECORDS SUMMARY | 2021-05-24 12:15 | XMS_ITS | Continuity of Care Document ---
:2000 Author Organization [facility] Address [address] [place] [address] Phone Care Team Providers Name Role Phone Savanah Primary Care Provider Allergies, Adverse Reactions, Alerts Allergen Type Severity Reaction Last Verified Status Updated No Known Drug Allergy none March Yes Active Allergies 2019 1:10pm Medications Medication Status Dose Units Route Directions Qty Days Start End Ins tructions Date Date Havrix (PF) Disconti 0.5 ML IM ONCE 0.5 Decembe Decemb (hepatitis A nued r , er virus vaccine 2018, (PF)) 720 11:35am 2018 LIANET 1:55pm unit/0.5 mL intramuscular Menactra (PF) Disconti 0.5 ML IM ONCE 0.5 Decembe Decemb (mening vac nued r , er A,C,Y,W135 2018, dip (PF)) 4 11:35am 2019 mcg/0.5 mL 1:55pm intramuscular human Disconti 0.5 ML IM ONCE 0.5 Decembe Decemb papillomav nued r 30, er vac,9-james(PF) 2018, 0.5 mL 11:35am 2018 intramuscular 1:55pm syringe Havrix (PF) Disconti 0.5 ML IM ONCE 0.March (hepatitis A nued , virus vaccine 2019 2019 (PF)) 720 1:00pm 1:48pm LIANET unit/0.5 mL intramuscular human Disconti 0.5 ML IM ONCE 0.5 March papillomav nued , vac,9-james(PF) 2019 2019 0.5 mL 1:00pm 1:48pm intramuscular syringe Loratadine Active 10 MG PO DAILY 25 April (Claritin) 10 , mg tablet 2019 12:36pm Mupirocin Disconti 1 APPLIC TOP THREE TIMES 08 February Decemb nued A DAY , er 2017, 4:38pm 2019 4:06pm Omeprazole Disconti 20 MG PO DAILY 14 February nued , 2019 12:39pm 11:01p m Problems Active Problems Medical Problem Onset Date Status Situational anxiety Active Inactive/Resolved Problems Medical Problem Onset Date Status Suprapubic abscess Resolved Acute tonsillitis April 17, 2017 Resolved Open wound of forearm with May 01, 2014 Resolved tendon involvement Bite of nonvenomous arthropod July 15, 2012 Resolved Dyspepsia Resolved Acute pharyngitis April 15, 2017 Resolved Allergic rhinitis September 27, 2012 Resolved Allergic rhinitis September 27, 2012 Resolved Relevant Diagnostic Tests and/or Laboratory Data Laboratory Results Test Date/Time Result Interpretation Reference Result Comment Performing Range Site White Blood March 13, 7.12 4.8-10.8 MAIN LA B, [address] [facility] Count 2019 1000/mm3 [facility] [address] 12:37pm Red Blood March 13, 5.38 M/mm3 4.70-6.00 MAIN LAB , [address] [facility] Count 2019 [facility] [address]85[address] 12:37pm Hemoglobin March 13, 16.9 g/dL 14.0-18.0 MAIN LAB , [address] [facility] 2019 [facility] [address] 12:37pm Hematocrit March 13, 49.9 % 42-52 MAIN LAB , [address] [facility] 2019 [facility] 51081 12:37pm Mean March 13, 92.8 fL 80.0-94.0 MAIN LAB, [address] [facility] Corpuscular 2019 [facility] [address] Volume 12:37pm Mean March 13, 31.4 pg 27-31 MAIN LAB, [address] [place] [address] [place] [address] Hemoglobin 12:37pm Mean March 13, 33.9 g/dL 33-37 MAIN LAB, [address] [place] [address] [place] [address] Hemoglobin 12:37pm Concent Red Cell March 13, 12.5 % 11.5-14.5 MAIN LAB, [address] [place] [address] [place] [address] Width 12:37pm Platelet March 13, 216 140-440 MAIN LAB, [address] [place] [address] Count 2020 1000/mm3 [place] [address] 12:37pm Mean March 13, 9.7 fL 7.4-10.4 MAIN LAB, [address] [place] [address] Platelet [address] [place] [address] Volume 12:37pm Neutrophils March 13, 64.3 % 40.0-72.0 MAIN LA B, [address] [place] [address] (%) (Auto) [address] [place] [address] 12:37pm Lymphocytes March 13, 26.4 % 17-45 MAIN LA B, [address] [place] [address] (%) (Auto) [address] [place] [address] 12:37pm Monocytes March 13, 7.0 % 3-11 MAIN LAB, [address] [place] [address] (%) (Auto) [address] [place] [address] 12:37pm Eosinophils March 13, 1.0 % 0-3 MAIN LA B, [address] [place] [address] (%) (Auto) [address] [place] [address] 12:37pm Basophils March 13, 1.0 % 0-1 MAIN LAB, [address] [place] [address] (%) (Auto) [address] [place] [address] 12:37pm Immature March 13, 0.3 % 0-1 MAIN LAB, [address] [place] [address] [place] [address] % (Auto) 12:37pm Neutrophils March 13, 4.58 1.4-6.5 MAIN LA B, [address] [place] [address] # (Auto) 2020 1000/mm3 [place] [address] 12:37pm Lymphocytes March 13, 1.88 1.2-3.4 MAIN LA B, [address] [place] [address] # (Auto) 2020 1000/mm3 [place] [address] 12:37pm Monocytes # March 13, 0.50 0.0-0.8 MAIN LA B, [address] [place] [address] (Auto) 2019 1000/mm3 [facility] 11351 12:37pm Eosinophils March 13, 0.07 0.0-0.7 MAIN LA B, [address] [place] [address] # (Auto) 2019 1000/mm3 [facility] [address]47 12:37pm Basophils # March 13, 0.07 0.0-0.1 MAIN LA B, [address] [place] [address] (Auto) 2019 1000/mm3 [facility] 85048 12:37pm Absolute March 13, 0.0 0-1 MAIN LAB, [address] [place] [address] Granulocyte 12:37pm (auto Differential March 13, Automated MAIN L AB, [address] [place] [address] 2019 [facility] [address] 12:37pm Sodium Level March 13, 141 mmol/L 137-145 MAIN LAB, [address] [place] [address] 12:37pm Potassium March 13, 4.4 mmol/L 3.6-5.0 MAIN LAB , [address] [place] [address] 2019 [facility] [address] 12:37pm Chloride March 13, 103 mmol/L 98-107 MAIN LAB , [address] [place] [place] [address] 12:37pm Carbon March 13, 29 mmol/L 22-30 MAIN LAB, [address] [place] [address] Dioxide 2019 [facility] [address] Level 12:37pm Anion Gap March 13, 9 7-16 MAIN LAB, [address] [place] [address] 12:37pm Blood Urea March 13, 15 mg/dL 8-26 MAIN LAB , [address] [place] [address] Nitrogen 2019 [facility] [address]58[address] 12:37pm Creatinine March 13, 0.88 mg/dL 0.66-1.25 MAIN LA B, [address] [place] [address] 12:37pm Glomerular March 13, > 60 >60.0 MAIN LAB , [address] [place] [address] Filtration 2019 mL/min [facility] [address] Rate Calc 12:37pm Glucose March 13, 103 mg/dL 70-100 MAIN LAB, [address] [place] [place] [address] 12:37pm Calcium March 13, 9.8 mg/dL 8.4-10.2 MAIN LAB, [address] [place] [address] Level 2020 [facility] [address]72 12:37pm Calcium March 13, 8.9 mg/dL 8.4-10.2 MAIN LAB, [address] [place] [address] Adjusted for 2019 [facility] [address] Albumin 12:37pm Total March 13, 0.9 mg/dL 0.2-1.3 MAIN LAB, [address] [place] [address] Bilirubin 2019 [facility] 11055 12:37pm Aspartate March 13, 25 U/L 17-59 MAIN LAB, [address] [place] [address] Amino Transf 2019 [facility] [address] (AST/SGOT) 12:37pm Alanine March 13, 13 U/L <50 As of 12/26/19, MAIN LAB, [address] [place] [address] Aminotransfe 2019 the Reference [place] [address] rase 12:37pm Range for (ALT/SGPT) ALT/SGPT for adult patients has been updated. The Reference Range for ALT/SGPT has not been established for patients <18 years of age. Total March 13, 8.3 g/dL 6.3-8.2 MAIN LAB, [address] [place] [address] Protein 2019 [facility] [address]7073 12:37pm Albumin March 13, 5.4 g/dL 3.5-5.0 MAIN LAB, [address] [place] [address] 2020 [facility] 47558 12:37pm Alkaline March 13, 66 U/L 38-126 MAIN LAB, [address] [place] [address] [place] [address] 12:37pm Lipase March 13, 60 U/L 23-300 MAIN LAB, [address] [place] [address] 2020 [facility] [address]5561 12:37pm Hepatitis A March 13, Negative Negative The results of [facility] IgM Antibody 2019 this assay can [place] [facility] 12:37pm be falsely lowered due to theconsumption of Biotin.Test performed or referred by[address] [address] Hepatitis B March 13, Negative Negative Test performed [facility] Surface 2019 or referred LABORATO LINDA Antigen 12:37pm [address] [place] [address] Hepatitis B March 13, Negative Negative Test performed [facility] Core Total 2019 or referred [facility]IES Antibody 12:37pm [facility] [place] [address] Hepatitis C March 13, Negative NEGATIVE MAIN LA B, [address] IgG Antibody 2019 [place] [address] 12:37pm Hepatitis C March 13, See Anti-HCV IgG MAIN LAB, [address] Antibody [address] [place] [address] Comment 12:37pm Patient is presumed not to be infected with HCV. Advance Directives Advance Directive Response Recorded Date/Time Does patient have an Advanced No February 08, 2011 4:25pm Directive? Do we have a copy on file No February 08 8 3:32pm here at [facility]? Pt has a Living Will? No February 08, 2011 4: 25pm Do we have a copy on file No February 08 8 3:32pm here at [facility]? Pt has a Power of Die Trouble Shooter? No February 08, 2 011 4:25pm Do we have a copy on file No February 08 8 3:32pm here at [facility]? Chief Complaint and Reason for Visit Chief Complaint Well child Follow Up Reason for Visit Situational anxiety Situational anxiety Encounters Encounter Location(s) Arrival/Admit Date Discharge/Depart Provi teo(s) Date Departed [facility] March 13, 2020 March 13, 2020 null Emergency Medical 9:59am 12:44pm [facility] Urgent [facility] Chantel Departed [facility] April 12, 2020 April 12, 2020 Joel Coto [facility] 12:55[facility] 1:49pm [facility] October 18, October 18, 2020 Ana villavicencio Physician/[facility] 2020 8:11am 11:59pm Jorje stoner ider Office Pediatrics St Visit Chantel Recent Diagnosis Onset Date Situational anxiety Situational anxiety Assessments Diagnosis Onset Date Resolution Status Situational anxiety acute Situational anxiety acute Family History Relationship Condition Age at Onset [...] Living Situation With Family March 13, 2020 12:0 7pm Goals Goals may be documented in an alternate section. 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s 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 Event Date Not Given Dose Health And Wellness Instructor Lot Number Va ccine Reason Number Informatio n Statement (VIS) Deta il DTP vaccine (H) 2001 DTP vaccine (H) 2001 DTP vaccine (H) 2001 DTP vaccine (H) August 12, 2003 DTP vaccine (H) May 04, 2006 Hepatitis A Juan [id number] Pediatric/Adoles 2018 cent Hepatitis B UNSP November 11, (H) 2001 Hepatitis B UNSP June (H) 2001 Hepatitis B UNSP July (H) 2002 HIB, Unspecified May (H) 2000 HIB, Unspecified July (H) 2000 HIB, Unspecified November 11, (H) 2001 HIB, Unspecified June (H) 2001 HPV 9 (Gardasil) April 10, 2017 HPV 9 (Gardasil) July [id number] 2018 Influenza IIV4 June with 2015 Preservative Meningococcal November Conjugate MCV4 2014 (Menactra) Meningococcal Juan [id number] Conjugate MCV4 2018 (Menactra) Measles,Mumps,Ru November aleksandra [...] Medical Equipment Information available Insurance Providers Guarantor ERUM CASTRO Address [address] [place] [id number] Contact Info. Home Phone: Payer Policy Id Coverage Id Subscriber's Subscriber Id Effective E xpiration Name Date Date MEDICAID OF [id number] ERUM Alanis [id number] [place] SELF PAY Self N/A [place] MEDICA[place] [id number] ERUM [id number] (DO NOT FORTINMOODY USE) Plan of Treatment Patient currently has nicotine addiction and advised him to seek care when he gets to college this . His immunizations are up-to-date. He has had some weight loss which I think suspect is related to anxiety and stress over the summer. Preventative education given. Follow-up in 3 months. 19-year-old male currently transitioning to college. He has had a rough summer where he left his parents house and moved into his grandparents. He had some problems with drinking and some abdominal pain. I do believe his weight loss is likely related to the stress and he will go off to college and I do recommend that he be seen when he comes back from college break. He was so anxious in the room today that he used his vape pen in the office room to self medicate his anxiety. I advised regular exercise and advised him to get a counselor when he gets to college. I am concerned that he might be prone to substance abuse especially when he is away from parental oversight while at college. discussed meds counselling [facility] student maddie has financial wellness coach to watch out for him call this week Future Tests Future scheduled test information is unavailable Pending Tests Pending diagnostic test information is unavailable Future Visits Future appointment information is unavailable Referrals to Other Providers Reason for Referral Start Provider Provider Contact Provider Address Referral Date Information Monty Work Phone: [facility] [place] MD Savanah [address] [place] [phone] Future Procedures Future procedure information is unavailable Future Medications Future medication information is unavailable Patient Instructions COVID 19 General Instructions- decrease the spread of coronavirus ([facility]) Social History Smoking Status Status Date of Observation Smokes tobacco daily (finding) October 18, 2020 3:3 2pm Observation Status Observation Response Date of Response Alcohol Use Yes March 13, 2020 12:0 7pm alcohol intake frequency a few times a week April 12 20 1:12pm Alcohol type beer April 12, 2020 1: 12pm wine April 12, 2020 1: 12pm Substance/Street Drug Use No March 13 0 12:07pm substance use type does not use April 12, 2020 1: 12pm Smoking Status Current every day smoker October 18, 2020 3:32pm Assigned Sex Male Vital Signs Vital Reading Result Reference Range Collection Date/ Time Weight 69.39 kg March 13, 2020 12:13pm [...] (Body Mass Index) 23.3 kg/m2 March 2:08pm Hospital Discharge Instructions
--- OUTSIDE RECORDS SUMMARY | 2021-05-24 12:16 | XMS_ITS | Continuity of Care Document ---
:2000 Author Organization [facility] Address [address] [place] [address] Phone Care Team Providers Name Role Phone Chiappinelli Primary Care Provider [place] Attending Provider Allergies, Adverse Reactions, Alerts Allergen Type Severity Reaction Last Updated Verified Status No Known Drug Allergy none September Yes Active Allergies 2019 10:09am Medications Medication Status Dose Units Route Sig Qty Days Start End Instruct ions Date Date Discontinu 0.5 ML IM ONCE 0.[address] [facility] ed , r 2018 11:35am 1:55pm Discontinu 0.5 ML [facility] 11:35am 1:55pm human Discontinu 0.5 [facility] , vac,9-james(PF) 2018 2018 0.5 mL 11:35am 1:55pm intramuscular syringe Mupirocin Discontinu 1 APPLIC TOP THREE [address] [facility] ed TIMES 15, r 16, A DAY [...] 2019 Barb Bond , complete d 11:46am [facility] RADIOLOG Y REPORT PATIENT NAME: Carlito Curran MRN: [id number] DATE OF : 2000 311 ATTENDING/ER PHYSICIAN: [...] No February 08 8 4:32pm here at [facility]? Pt has a Living Will? No February 08, 2011 5: 25pm Do we have a copy on file No February 08 8 4:32pm here at [facility]? Pt has a Power of Cutter Operator? No Lana 15th, 2 011 5:25pm Do we have a copy on file No February 08 8 4:32pm here at [facility]? Chief Complaint and Reason for Visit Chief Complaint Well child (adolescent) 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s rib pain Xray Encounters Encounter Location(s) Arrival/Admit Date Discharge/Depart Date Provider(s) Departed [facility] August 12, August 12, 2019 Jose Gerardo Physician/[facility] 2018 1:59pm 2:52pm MD boydr Office [facility] Visit Pediatrics [facility] Departed [facility] August 25, August 25, 2019 Jose Gerardo Physician/[facility] 2018 11:35am 12:13pm [facility], [facility] October 02, 2019 [facility] [place] [place] reinier Gerardo [facility] 9:56am 10:25am [facility] 02, 2019 October 02, 2019 [place] c Ger[facility]- 11:07am 11:08am [facility] Departed [facility] March 13, 2020 March 13, 2020 [facility] Emergency Medical 10:59am 1:44pm [facility] Urgent [facility] Assessments No Assessments Information Available Family [...] 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s 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 Event Date Not Given Dose Residential Mortgage Underwriter Lot Number Va ccine Reason Number Informatio [...] April 10, 2017 HPV 9 (Gardasil) July [id number] Influenza IIV4 June with 2015 Preservative Meningococcal November Conjugate MCV4 2014 (Menactra) Meningococcal Juan [id number] Conjugate MCV4 2018 (Menactra) Measles,Mumps,Ru November aleksandra [...] Providers Guarantor CARLITO Zeke GLORIA Address [address] [facility] [address] Contact Info. Home Phone: Payer Policy Id Coverage Id Subscriber's Subscriber Id Effective E xpiration Name Date Date MEDICAID OF [id number] Carlito Alanis [id number] [place] SELF PAY Self N/A [place] MED[place] [id number] CARLITO [id number] (DO NOT FORTINMOODY USE) Plan of Treatment [...] Address Referral Date Information Monty Work Phone: [facility] Pediatric[facility] Enrico Pavon MD [address] [facility] [phone] Future Procedures Future procedure information is [...]
--- OUTSIDE RECORDS SUMMARY | 2021-05-24 12:16 | XMS_ITS | Continuity of Care Document ---
:2000 Author Organization [facility] Address [address] [place] [address] Phone Care Team Providers Name Role Phone [...] 13, 7.12 4.8-10.8 MAIN LA B, [address] [facility] Count 2019 1000/mm3 [facility] 80044 12:37pm Red Blood March 13, 5.38 M/mm3 4.70-6.00 MAIN LAB , [address] [facility] Count 2019 [facility] 33108 12:37pm Hemoglobin March 13, 16.9 g/dL 14.0-18.0 MAIN LAB , [address] [facility] 2019 [facility] 70887 12:37pm Hematocrit March 13, 49.9 % 42-52 MAIN LAB , [address] [facility] 2019 [facility] 35819 12:37pm Mean March 13, 92.8 fL 80.0-94.0 MAIN LAB, [address] [facility] Corpuscular 2019 [facility] [address] Volume 12:37pm Mean March 13, 31.4 pg 27-31 MAIN LAB, [address] [place] [address] [place] [address] Hemoglobin 12:37pm Mean March 13, 33.9 g/dL 33-37 MAIN LAB, [address] [place] [address] [place] [address] Hemoglobin 12:37pm Concent Red Cell March 13, 12.5 % 11.5-14.5 MAIN LAB, [address] [place] [address] [place] [address] Width 12:37pm Platelet March 13, 216 140-440 MAIN LAB, [address] [place] [address] Count 2020 1000/[place]3 [place] [address] 12:37pm Mean March 13, 9.7 fL 7.4-10.4 MAIN LAB, [address] [place] [address] Platelet [address] [place] [address] Volume 12:37pm Neutrophils March 13, 64.3 % 40.0-72.0 MAIN LA B, [address] [place] [address] (%) (Auto) [address] [place] [address] 12:37pm Lymphocytes March 13, 26.4 % 17-45 MAIN LA B, [address] [place] [address] (%) (Auto) [address] [place] [address] 12:37pm Monocytes March 13, 7.0 % 3-11 MAIN LAB, [address] [place] [address] (%) (Auto) [address] [place] [address] 12:37pm Eosinophils March 13, 1.0 % 0-3 MAIN LA B, [address] [place] [address] (%) (Auto) [address] [place] [address] 12:37pm Basophils March 13, 1.0 % 0-1 MAIN LAB, [address] [place] [address] (%) (Auto) [address] [place] [address] 12:37pm Immature March 13, 0.3 % 0-1 MAIN LAB, [address] [place] [address] [place] [address] % (Auto) 12:37pm Neutrophils March 13, 4.58 1.4-6.5 MAIN LA B, [address] [place] [address] # (Auto) 2020 1000/mm3 [place] [address] 12:37pm Lymphocytes March 13, 1.88 1.2-3.4 MAIN LA B, [address] [place] [address] # (Auto) 2020 1000/mm3 [place] [address] 12:37pm Monocytes # March 13, 0.50 0.0-0.8 MAIN LA B, [address] [place] [address] (Auto) 2019 1000/mm3 [facility] 56060 12:37pm Eosinophils March 13, 0.07 0.0-0.7 MAIN LA B, [address] [place] [address] # (Auto) 2019 1000/mm3 [facility] 23769 12:37pm Basophils # March 13, 0.07 0.0-0.1 MAIN LA B, [address] [place] [address] (Auto) 2019 1000/mm3 [facility] 69787 12:37pm Absolute March 13, 0.0 0-1 MAIN LAB, [address] [place] [address] Granulocyte 12:37pm (auto Differential March 13, Automated MAIN L AB, [address] [place] [address] 2019 [facility] [address]3093 12:37pm Sodium Level March 13, 141 mmol/L 137-145 MAIN LAB, [address] [place] [address]33 12:37pm Potassium March 13, 4.4 mmol/L 3.6-5.0 MAIN LAB , [address] [place] [address] 2019 [facility] 48056 12:37pm Chloride March 13, 103 mmol/L 98-107 MAIN LAB , [address] [place] [address] 12:37pm Carbon March 13, 29 mmol/L 22-30 MAIN LAB, [address] [place] [address] Dioxide 2019 [facility] 80623 Level 12:37pm Anion Gap March 13, 9 7-16 MAIN LAB, [address] [place] [address]67 12:37pm Blood Urea March 13, 15 mg/dL 8-26 MAIN LAB , [address] [place] [address] Nitrogen 2019 [facility] 45698 12:37pm Creatinine March 13, 0.88 mg/dL 0.66-1.25 MAIN LA B, [address] [place] [address] 24168 12:37pm Glomerular March 13, > 60 >60.0 MAIN LAB , [address] [place] [address] Filtration 2019 mL/min [facility] [address] Rate Calc 12:37pm Glucose March 13, 103 mg/dL 70-100 MAIN LAB, [address] [place] [address] 90794 12:37pm Calcium March 13, 9.8 mg/dL 8.4-10.2 MAIN LAB, [address] [place] [address] Level 2020 [facility] 11785 12:37pm Calcium March 13, 8.9 mg/dL 8.4-10.2 MAIN LAB, [address] [place] [address] Adjusted for 2019 [facility] [address] Albumin 12:37pm Total March 13, 0.9 mg/dL 0.2-1.3 MAIN LAB, [address] [place] [address] Bilirubin 2019 [facility] 44323 12:37pm Aspartate March 13, 25 U/L 17-59 MAIN LAB, [address] [place] [address] Amino Transf 2019 [facility] 117[address] (AST/SGOT) 12:37pm Alanine March 13, 13 U/L <50 As of 12/26/19, MAIN LAB, [address] [place] [address] Aminotransfe 2019 the Reference [place] [address] rase 12:37pm Range for (ALT/SGPT) ALT/SGPT for adult patients has been updated. The Reference Range for ALT/SGPT has not been established for patients <18 years of age. Total March 13, 8.3 g/dL 6.3-8.2 MAIN LAB, [address] [place] [address] Protein 2019 [facility] 08118 12:37pm Albumin March 13, 5.4 g/dL 3.5-5.0 MAIN LAB, [address] [place] [address] 2020 [facility] 11398 12:37pm Alkaline March 13, 66 U/L 38-126 MAIN LAB, [address] [place] [address] [place] [address] 12:37pm Lipase March 13, 60 U/L 23-300 MAIN LAB, [address] [place] [address] 2020 [facility] 83839 12:37pm Hepatitis A March 13, Negative Negative The results of [facility] IgM Antibody 2019 this assay can [facility] 12:37pm be falsely lowered due to theconsumption of Biotin.Test performed or referred by[address] [address] Hepatitis B March 13, Negative Negative Test performed [facility] Surface 2019 or referred LABORATO LINDA Antigen 12:37pm [address] [place] [address] Hepatitis B March 13, Negative Negative Test performed [facility] Core Total 2019 or referred [facility] ORIES Antibody 12:37[facility] [place] [address] Hepatitis C March 13, Negative NEGATIVE MAIN LA B, [address] IgG Antibody 2019 [place] [address] 12:37pm Hepatitis C March 13, See Anti-HCV IgG MAIN LAB, [address] Antibody [address] [place] [address] Comment 12:37pm Patient is presumed not to be infected with HCV. Advance Directives Advance Directive Response Recorded Date/Time Does patient have an Advanced No February 08, 2011 4:25pm Directive? Do we have a copy on file No February 08 8 3:32pm here at [facility]? Pt has a Living Will? No February 08, 2011 4: 25pm Do we have a copy on file No February 08 8 3:32pm here at [facility]? Pt has a Power of Benefits Specialist? No February 08, 2 011 4:25pm Do we have a copy on file No February 08 8 3:32pm here at [facility]? Chief Complaint and Reason for Visit Chief Complaint Well child Follow Up Follow Up Reason for Visit Situational anxiety Situational anxiety Encounters Encounter Location(s) Arrival/Admit Date Discharge/Depart Provi teo(s) Date Departed [facility] March 13, 2020 March 13, 2020 [facility] Emergency Medical 9:59am 12:44pm [facility] April 12, 2020 April 12, 2020 [facility]55[facility] 1:49pm [facility] Departed [facility] October 18, October 18, 2020 Ana villavicencio [facility] 2020 8:11am 11:59pm deb [facility] Visit [facility] Departed [facility] October 20, October 20, 2020 Ana villavicencio [facility] 8:06am 11:59pm deb [facility] Visit [facility] Recent Diagnosis Onset Date Situational anxiety Situational [...] 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s 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 Event Date Not Given 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 Home Phone: Payer Policy Id Coverage Id Subscriber's Subscriber Id Effective E xpiration Name Date Date [place]ICA[place] OF [id number] ERUM Alanis [id number] [place] [employer] SELF PAY Self N/A [place] MEDICA[place] [id number] ERUM [id number] (DO NOT FORTINMOODY USE) Plan of Treatment [...] oversight while at college. 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 Chantel Pavon MD [address] [facility] [address] Future Procedures Future procedure information is unavailable Future Medications Future medication information is unavailable Patient Instructions COVID 19 General Instructions- decrease the spread of coronavirus ([facility]) Social History Smoking Status Status Date of Observation Smokes tobacco daily (finding) October 18, 2020 3:3 2pm Observation Status Observation Response Date of Response Alcohol Use Yes March 13, 2020 12:0 7pm alcohol intake frequency a few times a week April 12 1:12pm Alcohol type beer April 12, 2020 [...]
--- OUTSIDE RECORDS SUMMARY | 2021-05-24 12:17 | XMS_ITS | Continuity of Care Document ---
:2000 Author Organization [facility] Address [address] [place] [address] Phone Care Team Providers Name Role Phone Chiappinelli Primary Care Provider [place] Attending Provider Allergies, Adverse Reactions, Alerts Allergen Type Severity Reaction Last Updated Verified Status No Known Drug Allergy none September Yes Active Allergies 2019 Medications No known medications. Problems Inactive/Resolved Problems [...] completed Relevant Diagnostic Tests and/or Laboratory Data Diagnostic Imaging Reports Report Dictated Date/Time Dictated By Status Radiology Report October 02, 2019 Barb Bond , complete d 11:46am [facility] RADIOLOG Y REPORT PATIENT NAME: Carlito Curran MRN: [id number] DATE OF : 2000 311 ATTENDING/ER PHYSICIAN: [...] file No February 08 4:32pm here at [facility]? Pt has a Living Will? No February 08, 2011 5: 25pm Do we have a copy on file No February 08 8 4:32pm here at [facility]? Pt has a Power of Foreclosure Field Inspector? No February 08 011 5:25pm Do we have a copy on file No February 08 8 4:32pm here at [facility]? Chief Complaint and Reason for Visit Chief Complaint Well child (adolescent) 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s rib pain Xray Encounters Encounter Location(s) Arrival/Admit Date Discharge/Depart Date Provider(s) Departed [facility] January 22, 2019 January 22, 2019 Conversion Physician/Prov Medical 12:00am [facility] Departed [facility] August 12, August 12, 2019 Jose Gerardo Physician/Prov Medical 2018 1:59pm 2:52pm [facility] Departed [facility] August 25August 25, 2019 Jose Gerardo Physician/[facility] 2018 11:35am 12:13pm [facility] Departed [facility] October 02, 2019 October 02, 2019 Sco reinier Gerardo Physician/Prov Medical 9:56am 10:25am [facility] Departed [facility] October 02, 2019 October 02, 2019 Odilia Gerardo , [facility] 11:07am 11:08am [facility] Assessments No Assessments Information Available Family [...] Specified Family history Unknown non-contributory Functional Status No Functional Status information available Goals Goals may be documented in an alternate section. 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 Lot Number Va ccine Reason Number Informatio [...] (Gardasil) April 10, 2017 HPV 9 (Gardasil) Juan [id number] 2018 Influenza IIV4 June with 2015 Preservative Meningococcal November Conjugate MCV4 2014 (Menactra) Meningococcal Juan [id number] Conjugate MCV4 2018 (Menactra) Measles,Mumps,Ru November aleksandra Vaccine 2001 Measles,Mumps,Ru Anabela aleksandra Vaccine 2005 Pneumococcal October Unspecified (H) 2000 Pneumococcal Juan Unspecified (H) 2000 Pneumococcal November 11, ified (H) 2001 Polio October unspecified (H) 2000 Polio Juan unspecified (H) 2000 Polio Juan unspecified (H) 2002 Polio Anabela unspecified (H) 2005 Tdap July 03, 2014 Varicella Virus November Vaccine 2013 (Varivax) Varicella Virus November Vaccine 2014 (Varivax) Mental Status No Mental Status Information Available Medical Equipment No Medical Equipment Information available Insurance Providers Guarantor Carlito Curran Address [address] [facility] [address] Contact Info. Home Phone: Payer Policy Id Coverage Id Subscriber's Subscriber Id Effective E xpiration Name Date Date MEDICAID OF [id number] Carlito Alanis [id number] [place] S[place]F PAY Self N/A [place] MEDICA[place] [id number] [place] [id number] (DO NOT FORTINMOODY USE) Plan of Treatment [...] Provider Contact Provider Address Referral Date Information for 02/11/18. Monty Work Phone: [facility] Pediatrics [place] if MD [place] [address] [place] [address] [phone] consider returning to the ED. Future Procedures Future procedure information is unavailable Future Medications Future medication information is unavailable Patient Instructions Abscess Incision and Drainage MRSA (DC) Social History Smoking Status Status Date of Observation Never smoked tobacco (finding) October 02, 2019 10:1 2am Observation Status Observation Response Date of Response Alcohol Use No February 08, 2018 7:30 pm Substance/Street Drug Use No February 08 8 7:30pm Smoking Status Never smoker October 02, 2019 1 0:12am Assigned Sex Male Vital Signs Vital Reading [...] Body Temperature 96.6 [degF] 97.6-99.6 October 02 10:10am
--- OUTSIDE RECORDS SUMMARY | 2021-05-24 12:17 | XMS_ITS | Continuity of Care Document ---
:2001 Author Organization [facility] Address [address] [place] [address] Phone Care Team Providers Name Role Phone [...] 13, 7.12 4.8-10.8 MAIN LA B, [address] [facility] Count 2019 1000/mm3 [facility] 20163 12:37pm Red Blood March 13, 5.38 M/mm3 4.70-6.00 MAIN LAB , [address] [facility] Count 2019 [facility] 62028 12:37pm Hemoglobin March 13, 16.9 g/dL 14.0-18.0 MAIN LAB , [address] [facility] 2019 [facility] 86896 12:37pm Hematocrit March 13, 49.9 % 42-52 MAIN LAB , [address] [facility] 2019 [facility] 39815 12:37pm Mean March 13, 92.8 fL 80.0-94.0 MAIN LAB, [address] [facility] Corpuscular 2019 [facility] 33145 Volume 12:37pm Mean March 13, 31.4 pg 27-31 MAIN LAB, [address] [place] [address] [place] [address] Hemoglobin 12:37pm Mean March 13, 33.9 g/dL 33-37 MAIN LAB, [address] [place] [address] [place] [address] Hemoglobin 12:37pm Concent Red Cell March 13, 12.5 % 11.5-14.5 MAIN LAB, [address] [place] [address] [place] [address] Width 12:37pm Platelet March 13, 216 140-440 MAIN LAB, [address] [place] [address] Count 2020 1000/mm3 [place] [address] 12:37pm Mean March 13, 9.7 fL 7.4-10.4 MAIN LAB, [address] [place] [address] Platelet 2020 [place] [address] Volume 12:37pm Neutrophils March 13, 64.3 % 40.0-72.0 MAIN LA B, [address] [place] [address] (%) (Auto) [address] [place] [address] 12:37pm Lymphocytes March 13, 26.4 % 17-45 MAIN LA B, [address] [place] [address] (%) (Auto) [address] [place] [address] 12:37pm Monocytes March 13, 7.0 % 3-11 MAIN LAB, [address] [place] [address] (%) (Auto) [address] [place] [address] 12:37pm Eosinophils March 13, 1.0 % 0-3 MAIN LA B, [address] [place] [address] (%) (Auto) [address] [place] [address] 12:37pm Basophils March 13, 1.0 % 0-1 MAIN LAB, [address] [place] [address] (%) (Auto) [address] [place] [address] 12:37pm Immature March 13, 0.3 % 0-1 MAIN LAB, [address] [place] [address] [place] [address] % (Auto) 12:37pm Neutrophils March 13, 4.58 1.4-6.5 MAIN LA B, [address] [place] [address] # (Auto) 2020 1000/mm3 [place] [address] 12:37pm Lymphocytes March 13, 1.88 1.2-3.4 MAIN LA B, [address] [place] [address] # (Auto) 2020 1000/mm3 [place] [address] 12:37pm Monocytes # March 13, 0.50 0.0-0.8 MAIN LA B, [address] [place] [address] (Auto) 2019 1000/mm3 [facility] 59727 12:37pm Eosinophils March 13, 0.07 0.0-0.7 MAIN LA B, [address] [place] [address] # (Auto) 2019 1000/mm3 [facility] 19406 12:37pm Basophils # March 13, 0.07 0.0-0.1 MAIN LA B, [address] [place] [address] (Auto) 2019 1000/mm3 [facility] 46976 12:37pm Absolute March 13, 0.0 0-1 MAIN LAB, [address] [place] [address] Granulocyte 12:37pm (auto Differential March 13, Automated MAIN L AB, [address] [place] [address] 2019 [facility] 95148 12:37pm Sodium Level March 13, 141 mmol/L 137-145 MAIN LAB, [address] [place] [address] 12:37pm Potassium March 13, 4.4 mmol/L 3.6-5.0 MAIN LAB , [address] [place] [address] 2019 [facility] 82118 12:37pm Chloride March 13, 103 mmol/L 98-107 MAIN LAB , [address] [place] [address] 12:37pm Carbon March 13, 29 mmol/L 22-30 MAIN LAB, [address] [place] [address] Dioxide 2019 [facility] 08814 Level 12:37pm Anion Gap March 13, 9 7-16 MAIN LAB, [address] [place] [address] 13557 12:37pm Blood Urea March 13, 15 mg/dL 8-26 MAIN LAB , [address] [place] [address] Nitrogen 2019 [facility] 84717 12:37pm Creatinine March 13, 0.88 mg/dL 0.66-1.25 MAIN LA B, [address] [place] [address] 29903 12:37pm Glomerular March 13, > 60 >60.0 MAIN LAB , [address] [place] [address] Filtration 2019 mL/min [facility] 36130 Rate Calc 12:37pm Glucose March 13, 103 mg/dL 70-100 MAIN LAB, [address] [place] [address] 13631 12:37pm Calcium March 13, 9.8 mg/dL 8.4-10.2 MAIN LAB, [address] [place] [address] Level 2020 [facility] 15983 12:37pm Calcium March 13, 8.9 mg/dL 8.4-10.2 MAIN LAB, [address] [place] [address] Adjusted for 2019 [facility] 875[address] Albumin 12:37pm Total March 13, 0.9 mg/dL 0.2-1.3 MAIN LAB, [address] [place] [address] Bilirubin 2019 [facility] 13244 12:37pm Aspartate March 13, 25 U/L 17-59 MAIN LAB, [address] [place] [address] Amino Transf 2019 [facility] 93003 (AST/SGOT) 12:37pm Alanine March 13, 13 U/L <50 As of 12/26/19, MAIN LAB, [address] [place] [address] Aminotransfe 2019 the Reference [place] [address] rase 12:37pm Range for (ALT/SGPT) ALT/SGPT for adult patients has been updated. The Reference Range for ALT/SGPT has not been established for patients <18 years of age. Total March 13, 8.3 g/dL 6.3-8.2 MAIN LAB, [address] [place] [address] Protein 2019 [facility] 37087 12:37pm Albumin March 13, 5.4 g/dL 3.5-5.0 MAIN LAB, [address] [place] [address] 2020 [facility] 88461 12:37pm Alkaline March 13, 66 U/L 38-126 MAIN LAB, [address] [place] [address] [place] [address] 12:37pm Lipase March 13, 60 U/L 23-300 MAIN LAB, [address] [place] [address] 2020 [facility] 94011 12:37pm Hepatitis A March 13, Negative Negative The results of [facility] IgM Antibody 2019 this assay can [place] [facility] 12:37pm be falsely lowered due to theconsumption of Biotin.Test performed or referred by[address] [address] Hepatitis B March 13, Negative Negative Test performed [facility] Surface 2019 or referred [facility]OR[facility] LINDA Antigen 12:37pm [address] [place] [address] Hepatitis B March 13, Negative Negative Test performed [facility] Core Total 2019 or referred [facility] ORIES Antibody 12:37pm [facility] [place] [address] Hepatitis C March 13, Negative NEGATIVE MAIN LA B, [address] IgG Antibody 2019 [place] [address] 12:37pm Hepatitis C March 13, See Anti-HCV IgG MAIN LAB, [address] Antibody [address] [place] [address] Comment 12:37pm Patient is presumed not to be infected with HCV. Advance Directives Advance Directive Response Recorded Date/Time Does patient have an Advanced No February 08, 2011 4:25pm Directive? Do we have a copy on file No February 08 8 3:32pm here at [facility]? Pt has a Living Will? No February 08, 2011 4: 25pm Do we have a copy on file No February 08 8 3:32pm here at [facility]? Pt has a Power of Manager Performance? No February 08, 2 011 4:25pm Do we have a copy on file No February 08 8 3:32pm here at [facility]? Chief Complaint and Reason for Visit Chief Complaint Well child Follow Up Follow Up Follow Up Reason for Visit Situational anxiety Situational anxiety Situational anxiety Encounters Encounter Location(s) Arrival/Admit Date Discharge/Depart Provi teo(s) Date Departed [facility] March 13, 2020 March 13, 2020 [facility] Emergency Medical 9:59am 12:44pm Group-[facility] Urgent [facility] Chantel Departed [facility] April 12, 2020 April 12, 2020 Joel C[facility] 12[facility]55[facility] 1:49pm ider Office Pediatrics Visit [facility] Departed [facility] October 18, October 18, 2020 Ana villavicencio Physician/[facility] 2020 8:11am 11:59pm deb Gomezr Office Pediatrics St Visit Chantel Departed [facility] October 20, October 20, 2020 Ana villavicencio [facility] 2020 8:06am 11:59pm deb Gomezr Office Pediatrics St Visit Chantel Departed [facility] October 27, 2020 October 27, 2020 Monty Physician/[facility] 8:17am 11:59pm josé Gomez Office Pediatrics St Visit Chantel Recent Diagnosis Onset Date Situational anxiety Situational anxiety Situational anxiety Assessments Diagnosis Onset Date Resolution Status Situational anxiety acute Situational anxiety acute Situational anxiety acute Family [...] 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s 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 Date 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 Va ccine Reason Number [...] April 10, 2017 HPV 9 (Gardasil) July [id number] 2018 Influenza IIV4 June with 2015 Preservative Meningococcal November Conjugate MCV4 2014 (Menactra) Meningococcal Juan [id number] Conjugate MCV4 2018 (Menactra) Measles,Mumps,Ru November aleksandra Vaccine 2001 Measles,Mumps,Ru Anabela aleksandra Vaccine 2005 Pneumococcal October Unspecified (H) 2000 Pneumococcal Juan Unspecified (H) 2000 Pneumococcal November 11, ified (H) 2001 Polio October unspecified (H) 2000 Polio Juan unspecified (H) 2000 Polio Juan unspecified (H) 2002 Polio April unspecified (H) 2005 Tdap July 03, 2014 Varicella Virus November Vaccine 2013 (Varivax) Varicella Virus November Vaccine 2014 (Varivax) Mental Status No Mental Status Information Available Medical Equipment No Medical Equipment Information available Insurance Providers Guarantor ERUM CASTRO Address [address] [place] [address] Contact Info. Home Phone: Payer Policy Id Coverage Id Subscriber's Subscriber Id Effective E xpiration Name Date Date MEDICAID OF [id number] ERUM Alanis [id number] [place] Self N/A [place] [id number] ERUM [id number] (DO NOT FORTINMOODY USE) Plan of Treatment discussed many options see hpi home this weekend offerd to see declined deckines counslling and meds no slef harm not suicidal will call if things get worse He sas.. things always get better has sandrita zavala firends and a isabelor at college... Patient currently has nicotine addiction and advised [...] away from parental oversight while at college. Future Tests Future scheduled test information is unavailable Pending Tests Pending diagnostic test information is unavailable Future Visits Future appointment information is unavailable Referrals to Other Providers Reason for Referral Start Provider Provider Contact Provider Address Referral Date Information Millan Work Phone: [facility] Pediatrics St. Chantel Pavon MD [address] [facility] [address] Future Procedures Future procedure information is unavailable Future Medications Future medication information is unavailable Patient Instructions COVID 19 General Instructions- decrease the spread of coronavirus ([facility]) Social History Smoking Status Status Date of Observation Smokes tobacco daily (finding) October 27, 2020 10:33am Observation Status Observation Response Date of Response [...] Smoking Status Current every day smoker October 27, 2020 10:33am Assigned Sex Male Vital Signs Vital Reading [...]
--- OUTSIDE RECORDS SUMMARY | 2021-05-24 12:19 | XMS_ITS | Continuity of Care Document ---
:2001 Author Organization [facility] Address [address] [place] [address] Phone Support Name Relationship Address Phone JEANNE Mother Unavailable Medent Attending Provider Unavailable Unavailable [place] Attending Provider [facility] [phone] [place] [address] Chiappinelli Primary Care Provider [facility] [place] [address] Referral Referring Provider Unavailable Unavailable Allergies, Adverse Reactions, Alerts Allergen Type Severity [...] Resolved Allergic rhinitis September 27, 2012 Resolved Advance Directives Advance Directive Response Recorded Date/Time Does patient have an Advanced No February 08, 2011 5:25pm Directive? Do we have a copy on file No February 08 4:32pm here at [facility]? Pt has a Living Will? No February 08, 2011 5: 25pm Do we have a copy on file No February 08 8 4:32pm here at [facility]? Pt has a Power of Operating Room Rn? No February 08 5:25pm Do we have a copy on file No February 08 8 4:32pm here at [facility]? Chief Complaint and Reason for Visit Chief Complaint Well child (adolescent) 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s rib pain Encounters Encounter Location(s) Arrival/Admit Date Discharge/Depart Date Provider(s) Departed [facility] January 22, 2019 January 22, 2019 [facility] 12:00am Medent ider Office Pediatrics St Hailee Golden Departed [facility] August 12, August 12, 2019 [facility] 2018 1:59pm 2:52pm ider Office [facility] 2018 11:35am 12:13pm MD ider Office [facility], [facility] October 02, 2019 Sco reinier Ger[facility] 9:56am 10:25am MD ider Office Pediatrics Visit [facility] Assessments No Assessments Information Available Family History [...] 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s 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 Event Date Not Given Dose Plateman Lot Number Va ccine Reason Number Informatio [...] April 10, 2017 HPV 9 (Gardasil) July [id number] 2018 Influenza IIV4 June with 2015 Preservative Meningococcal November Conjugate MCV4 2014 (Menactra) Meningococcal July [id number] Conjugate MCV4 2018 (Menactra) Measles,Mumps,Ru November aleksandra Vaccine 2001 Measles,Mumps,Ru April aleksandra Vaccine 2005 Pneumococcal May Unspecified (H) 2000 Pneumococcal July Unspecified (H) 2000 Pneumococcal November 11, Unspecified (H) 2001 Polio October unspecified (H) 2000 Polio Juan unspecified (H) 2000 Polio Juan unspecified (H) 2002 Polio Anabela unspecified (H) 2005 Tdap July 03, 2014 Varicella Virus November Vaccine 2013 (Varivax) Varicella Virus November Vaccine 2014 (Varivax) Mental Status No Mental Status Information Available Medical Equipment No Medical Equipment Information available Insurance Providers Guarantor Carlito Alanis Magdy Address [address] [facility] [address] Contact Info. Home Phone: Payer Policy Id Coverage Id Subscriber's Subscriber Id Effective E xpiration Name Date Date [place]ICA[place] OF [id number] Carlito Alanis [id number] [place] Self N/A [place] [id number] [place] [id number] (DO NOT FORTINMOODY USE) Plan of Treatment discussed diet/nutrition, safety and well-being, discipline, prevention [...] Date Information for 02/11/18. Monty Work Phone: [facility] Manlius Sooner if MD Savanah [address] [place] [address] [phone] consider returning to the ED. Future Procedures [...] Body Temperature 96.6 [degF] 97.6-99.6 October 02, 020 10:10am
== END 2021-05-24 11:56 | disposition home or self-care (01) ==
LOC: ER 12:11
PROVIDERS: Emergency Provider Emergency Medicine
DX: L03.213 Periorbital cellulitis (principal)
CPT/HCPCS: 99283